=== PATIENT | male | born 1995 | race African-American/Black ===

== ENCOUNTER 2018-06-11 23:47 | Emergency (ER) | payer BC ==
[~2018-06-11] VITALS: Ht 157.5 cm; Wt 65.8 kg
[2018-06-12 00:05] VITALS: BP 142/74
--- NOTE | 2018-06-12 00:12 | PHYS DOC ---
Adult General Chief Complaint Chief Complaint: SEXUALLY TRANSMITTED DISEASE HPI HPI Patient is a 23 year old male who presents stating "l would like to be treated for STDs gonorrhea chlamydia because i am having discharge". Review of Systems Review of Systems Constitutional: Denies fever or chills [] GI: Reports concern for STDs. Reports penile discharge. Denies abdominal pain, nausea, vomiting, bloody stools or diarrhea [] : Denies dysuria or hematuria [] Musculoskeletal: Denies back pain or joint pain [] Integument: Denies rash or skin lesions [] Neurologic: Denies headache, focal weakness or sensory changes [] All other systems were reviewed and found to be within normal limits, except as documented in this note. Current Medications Current Medications Current Medications Medications (Trade) Dose Ordered Sig/Debbie Start Time Stop Time Status Last Admin Dose Admin Azithromycin (Zithromax) 1,000 mg 1X ONCE 06/12/18 00:15 06/12/18 00:16 UNV Ceftriaxone Sodium (Rocephin Im) 250 mg 1X ONCE 06/12/18 00:15 06/12/18 00:16 UNV Metronidazole (Flagyl) 2,000 mg 1X ONCE 06/12/18 00:15 06/12/18 00:16 UNV Physical Exam Physical Exam Constitutional: Well developed, well nourished, no acute distress, non-toxic appearance. [] Abdomen: Bowel sounds normal, soft, no tenderness, no masses, no pulsatile masses. [] Skin: Warm, dry, no erythema, no rash. [] Back: No tenderness, no CVA tenderness. [] Extremities: No tenderness, no cyanosis, no clubbing, ROM intact, no edema. [] Neurologic: Alert and oriented X 3, normal motor function, normal sensory function, no focal deficits noted. [] Psychologic: Affect normal, judgement normal, mood normal. [] EKG EKG [] Radiology/Procedures Radiology/Procedures [] Course & Med Decision Making Course & Med Decision Making Pertinent Labs and Imaging studies reviewed. (See chart for details) This is a 23-year-old male patient presenting to the ED today with concern for STDs. Patient was treated prophylaxis in the ED. Safe sex practices a dictation provided. Dragon Disclaimer Dragon Disclaimer This electronic medical record was generated, in whole or in part, using a voice recognition dictation system. Departure Departure Impression: Primary Impression: Concern about STD in male without diagnosis Disposition: 01 HOME, SELF-CARE Condition: STABLE Referrals: NO PCP (PCP) follow up with your doctor or health department as needed. Patient Instructions: Sexually Transmitted Disease Additional Instructions: You were evaluated in the emergency room with concern for sexually transmitted diseases, you were treated. Use protection at all times. Contact your partners, let them know you were treated for STDs and ask them to seek treatment too. Do not have sex for one week. SHIRIN DANG APRN Jun 12, 2018 00:12
[2018-06-12 00:40] LABS: BILIRUBIN,URINE NEGATIVE (NEG); CLARITY,URINE CLEAR; COLOR,URINE YELLOW; NITRITE,URINE NEGATIVE (NEG); PROTEIN,URINE NEGATIVE (NEG-TRACE); UROBILINOGEN,URINE 0.2 mg/dL (0.2 mg/dL)
[2018-06-12] MEDS ORDERED: AZITHROMYCIN 250 MG TABLET. PO ONE (00:45)
[2018-06-12] MEDS ORDERED: cefTRIAXone IM 250 MG VIAL IM ONE (00:45)
[2018-06-12] MEDS ORDERED: metroNIDAZOLE 500 MG TABLET PO ONE (00:45)
[2018-06-12 00:50] LABS: BACTERIA,URINE 0 /HPF (0-FEW); RBC,URINE OCC /HPF (0-2); SQUAMOUS EPITHELIAL CELL,UR OCC /LPF; WBC,URINE 20-40 /HPF (0-4)
== END 2018-06-12 00:43 | disposition home or self-care (01) ==
LOC: ER 23:47
DX: Z20.2 Contact with and (suspected) exposure to infections with a predominantly sexual mode of transmission (principal)
CPT/HCPCS: 81001; 87491; 87591; 96372; 99284; J0696; Q0144

== ENCOUNTER 2019-03-13 00:10 | Emergency (ER) | payer BC ==
[~2019-03-13] VITALS: Ht 170.2 cm; Wt 74.8 kg
[2019-03-13 00:13] VITALS: BP 141/87
[2019-03-13] MEDS ORDERED: DICL50TA4 PO (00:36)
[2019-03-13] MEDS ORDERED: HYDR-3164 PO (00:36)
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
[2019-03-13] MEDS ORDERED: HYDROcodone/APAP 10/325 1 TAB TABLET PO ONE (00:45)
== END 2019-03-13 01:04 | disposition home or self-care (01) ==
LOC: ER 00:10
DX: S71.102A Unspecified open wound, left thigh, initial encounter (principal); Z88.5 Allergy status to narcotic agent; W34.09XA Accidental discharge from other specified firearms, initial encounter; Y93.89 Activity, other specified; Y92.89 Other specified places as the place of occurrence of the external cause; Y99.8 Other external cause status
CPT/HCPCS: 99283

== ENCOUNTER 2021-10-27 16:22 | Emergency (ER) | payer BC ==
[~2021-10-27] VITALS: Ht 172.7 cm; Wt 83.2 kg
[~2021-10-27 16:22] MED LIST: DICL50TA4 PO; HYDR-3164 PO
[2021-10-27 16:49] VITALS: BP 138/66
[2021-10-27] MEDS ORDERED: cefTRIAXone IM 500 MG VIAL. IM ONE (17:30)
[2021-10-27] MEDS ORDERED: DOXYCYCLINE HYCLATE 100 MG TABLET PO ONE (17:30)
[2021-10-27] MEDS ORDERED: metroNIDAZOLE 500 MG TABLET PO ONE (17:30)
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
== END 2021-10-27 18:22 | disposition home or self-care (01) ==
LOC: ER 16:22
DX: R36.9 Urethral discharge, unspecified (principal); Z20.2 Contact with and (suspected) exposure to infections with a predominantly sexual mode of transmission; Z88.5 Allergy status to narcotic agent
CPT/HCPCS: 96372; 99283; J0696